=== PATIENT | male | born 1950 | race Caucasian/White ===

== ENCOUNTER 2021-01-15 16:46 | Emergency (ER) | payer MEDICARE, MEDICAID ==
[~2021-01-15] VITALS: Ht 180.3 cm; Wt 99.0 kg
[2021-01-15] MEDS ORDERED: SODIUM CHLORIDE 0.9% 1,000 ML IV ONE (17:15)
[2021-01-15 17:45] LABS: BASOPHILS % 0.3 % (0.0-2.0); HEMATOCRIT. 49.9 % (42.0-52.0); HEMOGLOBIN. 17.2 g/dL (14.0-18.0); LYMPHOCYTES % 14.2 % (20.0-50.0); MEAN CORPUSCULAR HEMOGLOBIN 30.6 pg (28.0-32.0); MEAN CORPUSCULAR VOLUME 88.8 fL (80.0-94.0); MEAN PLATELET VOLUME 7.3 fl (7.4-10.4); MONOCYTES % 6.3 % (2.0-8.0); NEUTROPHILS % 78.2 % (40.0-76.0); PLATELET 291 x1000/uL (130-400); RED BLOOD CELL COUNT 5.62 mill/uL (4.7-6.1); RED CELL DISTRIBUTION WIDTH 14.5 % (11.6-14.6)
[2021-01-15 17:51] LABS: CLARITY URINE CLEAR (CLEAR); COLOR URINE YELLOW (YELLOW); KETONES URINE 3+ (NEGATIVE); LEUKOCYTE ESTERASE URINE NEGATIVE (NEGATIVE); NITRITE URINE NEGATIVE (NEGATIVE); OCCULT BLOOD URINE NEGATIVE (NEGATIVE); PROTEIN URINE NEGATIVE (NEGATIVE); SPECIFIC GRAVITY URINE 1.017 (1.005-1.030); UROBILINOGEN URINE 0.2 E.U./dL (0.2-1.0)
[2021-01-15 17:54] LABS: CHLORIDE 106 mEq/L (98-107)
[2021-01-15 20:07] VITALS: BP 154/87
== END 2021-01-15 20:09 | disposition home or self-care (01) ==
LOC: ER 16:46
DX: R55 Syncope and collapse (principal); E86.0 Dehydration; R03.0 Elevated blood-pressure reading, without diagnosis of hypertension
CPT/HCPCS: 36415; 71045; 80053; 81003; 85025; 93005; 96360; 99285; J7030

== ENCOUNTER 2021-04-10 19:53 | Emergency (ER) | payer OTHER, MEDICAID ==
[~2021-04-10] VITALS: Ht 172.7 cm; Wt 80.0 kg
[2021-04-10 21:07] LABS: CHLORIDE 110 mEq/L (98-107)
[2021-04-10 21:07] LABS: CLARITY URINE CLEAR (CLEAR); COLOR URINE YELLOW (YELLOW); KETONES URINE NEGATIVE (NEGATIVE); LEUKOCYTE ESTERASE URINE NEGATIVE (NEGATIVE); NITRITE URINE NEGATIVE (NEGATIVE); OCCULT BLOOD URINE 2+ (NEGATIVE); PROTEIN URINE 1+ (NEGATIVE); SPECIFIC GRAVITY URINE 1.007 (1.005-1.030); UROBILINOGEN URINE 0.2 E.U./dL (0.2-1.0)
[2021-04-10] MEDS ORDERED: HYDROCODONE/ACETAMINOPHEN 5/325MG TABLET PO ONE (21:15)
[2021-04-10] MEDS ORDERED: NITR-87 MT (23:03)
[2021-04-10 23:32] VITALS: BP 144/89
== END 2021-04-10 23:32 | disposition home or self-care (01) ==
LOC: ER 19:53
DX: R33.9 Retention of urine, unspecified (principal); N39.0 Urinary tract infection, site not specified; I10 Essential (primary) hypertension; Z98.890 Other specified postprocedural states
CPT/HCPCS: 36415; 80048; 81003; 93005; 99285

== ENCOUNTER 2022-02-06 03:37 | Emergency (ER) | payer OTHER, MEDICAID ==
[~2022-02-06] VITALS: Ht 172.7 cm; Wt 84.0 kg
[~2022-02-06 03:37] MED LIST: NITR-87 MT
[2022-02-06 04:44] VITALS: BP 108/77
== END 2022-02-06 04:44 | disposition home or self-care (01) ==
LOC: ER 03:37
DX: R33.9 Retention of urine, unspecified (principal); E78.00 Pure hypercholesterolemia, unspecified; I10 Essential (primary) hypertension
CPT/HCPCS: 99281